=== PATIENT | male | born 1945 | race Hispanic/Latino ===

== ENCOUNTER 2020-08-30 15:08 | Inpatient (IN) | payer MEDICARE ==
[~2020-08-30] VITALS: Ht 160 cm; Wt 64.4 kg
[2020-08-30 15:11] VITALS: BP 84/31
[2020-08-30 15:43] LABS: BASOPHILS % (AUTO) 0.2 % (0.0-5.0); EOSINOPHILS % (AUTO) 1.1 % (0.0-8.0); LYMPHOCYTES % (AUTO) 23.4 % (21.0-51.0); MEAN CORPUSCULAR HEMOGLOBIN 25.8 pg (27.0-33.0); MEAN CORPUSCULAR HGB CONC 29.1 g/dL (32.0-36.0); MEAN CORPUSCULAR VOLUME 88.7 fL (79-99); MONOCYTES % (AUTO) 13.8 % (3.0-13.0); NEUTROPHILS % (AUTO) 61.2 % (40.0-77.0); NUCLEATED RED BLOOD CELLS 0.3 % (0.0-0.19); PLATELET COUNT (AUTO) 313 K/uL (130-400); RED BLOOD CELL COUNT(AUTO) 2.13 MIL/uL (4.50-6.20); RED CELL DISTRIBUTION WIDTH 20.7 % (11.0-15.5); WHITE BLOOD COUNT (AUTO) 9.3 K/uL (4.8-10.8)
[2020-08-30 15:48] LABS: HEMATOCRIT 18.9 % (42-54)
[2020-08-30 16:30] VITALS: BP 115/61
[2020-08-30] MEDS ORDERED: MAG HYDROX/AL HYDROX/SIMETH ES 30 ML SUSP UDCUP PO PRN (18:30)
[2020-08-30] MEDS ORDERED: ACETAMINOPHEN 325 MG TAB PO PRN ×2 (18:30)
[2020-08-30] MEDS ORDERED: GUAIFENESIN-DM 200/20 MG 10 ML PO PRN (18:30)
[2020-08-30] MEDS ORDERED: ONDANSETRON HCL 4 MG/2 ML VIAL IV PRN (18:30)
[2020-08-30] MEDS ORDERED: LACTULOSE 20 GM/30 ML UDCUP PO PRN (18:30)
[2020-08-30] MEDS ORDERED: DIPHENHYDRAMINE HCL 25 MG CAPSULE PO PRN (18:30)
[2020-08-30 18:47] VITALS: BP 113/58
[2020-08-30 20:22] VITALS: BP 133/68
[2020-08-30] MEDS: INSULIN HUMULIN R 100 UNIT/ML 3ML SQ SCH (21:00)
[2020-08-30] MEDS: FAMOTIDINE/PF 20 MG/2 ML VIAL IV SCH (21:03)
[2020-08-30] MEDS: ACETAMINOPHEN-CODEINE 300/30MG TAB PO PRN (21:40)
[2020-08-31] VITALS (12 sets, daily range): BP systolic 120–144; BP diastolic 45–79
[2020-08-31] MEDS ORDERED: 0.9% SODIUM CHLORIDE 50 ML IV BAG IV SCH (00:15)
[2020-08-31] MEDS ORDERED: PIP/TAZ ZOSYN 3.375G 3.375 GM VIAL IVPB SCH (00:15)
[2020-08-31] MEDS: ZOSYN 3.375GM+NS 50ML 50 ML IV SCH ×3 (00:53→16:01)
[2020-08-31 01:14] LABS: BASOPHILS % (AUTO) 0.3 % (0.0-5.0); HEMATOCRIT 28.7 % (42-54); LYMPHOCYTES % (AUTO) 23.6 % (21.0-51.0); MEAN CORPUSCULAR HEMOGLOBIN 26.7 pg (27.0-33.0); MEAN CORPUSCULAR HGB CONC 30.7 g/dL (32.0-36.0); MEAN CORPUSCULAR VOLUME 87.2 fL (79-99); NEUTROPHILS % (AUTO) 65.8 % (40.0-77.0); NUCLEATED RED BLOOD CELLS 0.2 % (0.0-0.19); PLATELET COUNT (AUTO) 331 K/uL (130-400); RED BLOOD CELL COUNT(AUTO) 3.29 MIL/uL (4.50-6.20); RED CELL DISTRIBUTION WIDTH 18.4 % (11.0-15.5); WHITE BLOOD COUNT (AUTO) 9.9 K/uL (4.8-10.8)
[2020-08-31] MEDS: ACETAMINOPHEN-CODEINE 300/30MG TAB PO PRN ×2 (03:13→08:25)
[2020-08-31 07:14] LABS: CREATININE 1.3 mg/dL (0.5-1.5)
[2020-08-31] MEDS: INSULIN HUMULIN R 100 UNIT/ML 3ML SQ SCH ×3 (07:30→16:30)
[2020-08-31] MEDS: FAMOTIDINE/PF 20 MG/2 ML VIAL IV SCH (08:24)
[2020-08-31] MEDS ORDERED: SODIUM CHLORIDE 0.9% 50 ML IV ONE (15:58)
[2020-08-31] MEDS ORDERED: FUROSEMIDE 40MG VIAL (10MG/ML) IV ONE (18:30)
[2020-08-31] MEDS ORDERED: CLOPIDOGREL BISULFATE 75 MG TAB PO SCH (18:30)
[2020-08-31] MEDS: ATORVASTATIN CALCIUM 10 MG TABLET PO SCH (21:48)
[2020-08-31] MEDS ORDERED: ACETAMINOPHEN-CODEINE 300/30MG TAB PO PRN (22:45)
[2020-08-31] MEDS ORDERED: ACETAMINOPHEN-CODEINE 300/30MG TAB ONE (22:49)
[2020-09-01] VITALS (8 sets, daily range): BP systolic 105–159; BP diastolic 56–93
[2020-09-01] MEDS: ZOSYN 3.375GM+NS 50ML 50 ML IV SCH ×4 (01:04→23:34)
[2020-09-01] MEDS: HYDROMORPHONE 0.5 MG SYG (0.5MG/0.5ML) IVP PRN ×5 (02:56→23:35)
[2020-09-01 05:19] LABS: HEMATOCRIT 27.6 % (42-54); MEAN CORPUSCULAR HEMOGLOBIN 25.9 pg (27.0-33.0); MEAN CORPUSCULAR HGB CONC 30.1 g/dL (32.0-36.0); MEAN CORPUSCULAR VOLUME 86.3 fL (79-99); NUCLEATED RED BLOOD CELLS 0.2 % (0.0-0.19); PLATELET COUNT (AUTO) 370 K/uL (130-400); RED CELL DISTRIBUTION WIDTH 18.6 % (11.0-15.5); WHITE BLOOD COUNT (AUTO) 9.5 K/uL (4.8-10.8)
[2020-09-01 05:39] LABS: % IRON SATURATION 3.5 % (30-44)
[2020-09-01 05:41] LABS: POTASSIUM 3.9 mmol/L (3.5-5.1)
[2020-09-01] MEDS: ACETAMINOPHEN-CODEINE 300/30MG TAB PO PRN ×3 (06:09→22:14)
[2020-09-01] MEDS: FUROSEMIDE 40MG VIAL (10MG/ML) IV SCH (07:53)
[2020-09-01] MEDS: CLOPIDOGREL BISULFATE 75 MG TAB PO SCH (07:54)
[2020-09-01] MEDS: PANTOPRAZOLE SODIUM 40 MG TABLET.DR PO SCH (07:54)
[2020-09-01] MEDS: METOPROLOL SUCCINATE 50 MG TAB.SR.24H PO SCH (07:54)
[2020-09-01] MEDS: NITROGLYCERIN 1GM/1 INCH PACKET TD SCH ×3 (11:07→22:14)
[2020-09-01] MEDS ORDERED: COMPOUND IV MISC 1 EACH IVSOLN MISC PRN (18:15)
[2020-09-01] MEDS: ATORVASTATIN CALCIUM 10 MG TABLET PO SCH (20:07)
[2020-09-01] MEDS ORDERED: IRON SUCROSE COMPLEX 300 MG in SODIUM CHLORIDE 0.9% 50 ML IV SCH (21:00)
[2020-09-02 03:57] VITALS: BP 128/64
[2020-09-02 04:02] LABS: MEAN CORPUSCULAR HEMOGLOBIN 26.1 pg (27.0-33.0); MEAN CORPUSCULAR HGB CONC 29.6 g/dL (32.0-36.0); MEAN CORPUSCULAR VOLUME 87.9 fL (79-99); RED BLOOD CELL COUNT(AUTO) 3.07 MIL/uL (4.50-6.20); RED CELL DISTRIBUTION WIDTH 18.4 % (11.0-15.5); WHITE BLOOD COUNT (AUTO) 7.6 K/uL (4.8-10.8)
[2020-09-02] MEDS: NITROGLYCERIN 1GM/1 INCH PACKET TD SCH ×3 (04:14→16:15)
[2020-09-02 05:08] LABS: CREATININE 0.9 mg/dL (0.5-1.5); POTASSIUM 3.9 mmol/L (3.5-5.1)
[2020-09-02] MEDS: HYDROMORPHONE 0.5 MG SYG (0.5MG/0.5ML) IVP PRN ×3 (05:37→11:53)
[2020-09-02 08:06] VITALS: BP 127/85
[2020-09-02] MEDS: ZOSYN 3.375GM+NS 50ML 50 ML IV SCH ×2 (09:24→16:15)
[2020-09-02] MEDS: FUROSEMIDE 40MG VIAL (10MG/ML) IV SCH (09:25)
[2020-09-02] MEDS: PANTOPRAZOLE SODIUM 40 MG TABLET.DR PO SCH (09:25)
[2020-09-02] MEDS: METOPROLOL SUCCINATE 50 MG TAB.SR.24H PO SCH (09:25)
[2020-09-02] MEDS: CLOPIDOGREL BISULFATE 75 MG TAB PO SCH (09:25)
[2020-09-02] MEDS: ACETAMINOPHEN-CODEINE 300/30MG TAB PO PRN (09:37)
[2020-09-02 11:44] VITALS: BP 124/58
[2020-09-02] MEDS ORDERED: DIPH25 PO (14:34)
[2020-09-02] MEDS ORDERED: ACET1TAB25 PO (14:34)
[2020-09-02] MEDS ORDERED: ONDA220I IV (14:34)
[2020-09-02] MEDS ORDERED: PIPE3.379 IV (14:34)
[2020-09-02] MEDS ORDERED: LACT10SO9 PO (14:34)
[2020-09-02] MEDS ORDERED: MAG30ORA12 PO (14:34)
[2020-09-02] MEDS ORDERED: FAMO10VI2 IV (14:34)
[2020-09-02] MEDS ORDERED: CLOP75TA32 PO ×2 (14:34→17:08)
[2020-09-02] MEDS ORDERED: FURO10VI4 IV (14:34)
[2020-09-02] MEDS ORDERED: ICOS1CAP PO (17:08)
[2020-09-02] MEDS ORDERED: ATOR40TA69 PO (17:08)
[2020-09-02] MEDS ORDERED: CYAN10007 IJ (17:08)
[2020-09-02] MEDS ORDERED: PIOG15TA6 PO (17:08)
[2020-09-02] MEDS ORDERED: APIX5TAB PO (17:08)
[2020-09-02] MEDS ORDERED: FURO40TA5 PO (17:08)
[2020-09-02] MEDS ORDERED: TAMS-1 PO (17:08)
[2020-09-02] MEDS ORDERED: RANO500T6 PO (17:08)
[2020-09-02] MEDS ORDERED: MIRA25TA PO (17:08)
[2020-09-02] MEDS ORDERED: IRON1CAP30 PO (17:08)
[2020-09-02] MEDS ORDERED: SUCR1TAB2 PO (17:08)
[2020-09-02] MEDS ORDERED: METO-391 PO (17:08)
[2020-09-02] MEDS ORDERED: GABA-533 PO (17:08)
[2020-09-02] MEDS ORDERED: PANT40TA54 PO (17:08)
[2020-09-02] MEDS ORDERED: ALPH200C2 PO (17:08)
[2020-09-02] MEDS ORDERED: AEC81 PO (17:08)
[2020-09-02 17:10] VITALS: BP 130/80
== END 2020-09-02 15:00 | disposition home health service (06) | DRG 812 ==
LOC: EDH 15:08 → EDHIP 18:21 → OBSVTOIN 18:21 → 3CH 08-31 23:18
PROVIDERS: ADMIT Internal Medicine Critical Care Medicine; ATTEND Internal Medicine Critical Care Medicine
PROC: 30233N1 Transfusion of Nonautologous Red Blood Cells into Peripheral Vein, Percutaneous Approach (ICD-10-PCS; principal; 2020-08-30)
DX: D50.9 Iron deficiency anemia, unspecified (principal); I50.22 Chronic systolic (congestive) heart failure; E11.52 Type 2 diabetes mellitus with diabetic peripheral angiopathy with gangrene; L97.419 Non-pressure chronic ulcer of right heel and midfoot with unspecified severity; I48.0 Paroxysmal atrial fibrillation; I25.5 Ischemic cardiomyopathy; I25.10 Atherosclerotic heart disease of native coronary artery without angina pectoris; I11.0 Hypertensive heart disease with heart failure; N40.0 Benign prostatic hyperplasia without lower urinary tract symptoms; E11.621 Type 2 diabetes mellitus with foot ulcer; E78.00 Pure hypercholesterolemia, unspecified; E78.5 Hyperlipidemia, unspecified; F32.9 Major depressive disorder, single episode, unspecified; F41.9 Anxiety disorder, unspecified; L97.519 Non-pressure chronic ulcer of other part of right foot with unspecified severity; Z79.01 Long term (current) use of anticoagulants; Z79.02 Long term (current) use of antithrombotics/antiplatelets; Z79.82 Long term (current) use of aspirin; Z79.899 Other long term (current) drug therapy; Z89.512 Acquired absence of left leg below knee; Z89.612 Acquired absence of left leg above knee; Z95.1 Presence of aortocoronary bypass graft; Z95.2 Presence of prosthetic heart valve; Z95.5 Presence of coronary angioplasty implant and graft; Z79.84 Long term (current) use of oral hypoglycemic drugs
CPT/HCPCS: 36415; 78278; 80048; 82607; 82746; 82948; 83010; 83540; 83550; 83615; 85025; 85027; 86850; 86900; 86901; 86923; A9512; G0378; J1170; J1756; J1940; J2543; J3490; P9016